=== PATIENT | female | born 1945 | race Asian ===

== ENCOUNTER → 2020-05-04 | Day surgery (SDC) | payer MEDICARE ==
[2020-05-04] VITALS (9 sets, daily range): BP systolic 116–136; BP diastolic 60–82
[~2020-05-04] VITALS: Ht 152.4 cm; Wt 54.4 kg
[~2020-05-04] MED LIST: AMBIEN10 M1 ORAL; AMBIEN5 MG ORAL; ASPIRIN-LOW81 MG ORAL; CALCIUM + VITA1 EAC2 PO; COZAAR50 MG ORAL; CRESTOR10 M1 ORAL; CYCLOBENZAPRINE10 MG ORAL; FOSAMAX70 MG ORAL; HYDROCHLOROTH12.5 MG ORAL; HYZAAR 100-12.1 EACH ORAL; LEVOTHYROXINE100 MCG ORAL; LR 1000ml 1,000 ML IVLG SCH; LR 1000ml ONE; Lidocaine 1% MPF 10mg/ml 5ml ONE; MAGNESIUM250 M3 PO; MULTIVITAMINS1 EAC2 ORAL; TRIPLE FLEX CA1 EACH PO; VITAMIN C500 M1 ORAL; VITAMIN D3250 MCG PO
--- NOTE | 2020-05-04 08:22 | Pre-Procedure Note/Attestation ---
Pre-Procedure Note/Attestation Complete Prior to Procedure Planned Procedure: not applicable Procedure Narrative: esophagogastroduodenoscopy colon Indications for Procedure Pre-Operative Diagnosis: anemia Attestation I attest that I discussed the nature of the procedure; its benefits; risks and complications; and alternatives (and the risks and benefits of such alternatives), prior to the procedure, with the patient (or the patient's legal roofing sales representative). I attest that, if there was a reasonable possibility of needing a blood transfusion, the patient (or the patient's legal roofing sales representative) was given the [facility] standardized written summary, pursuant to the [employer] Blood Safety Act ([place] Health and Safety Code # 1645, as amended). I attest that I re-evaluated the patient just prior to the surgery and that there has been no change in the patient's H&P, except as documented below: Dante Pressley MD May 04, 2020 08:22
--- NOTE | 2020-05-04 08:22 | Short Stay Surgery H&P ---
History of Present Illness History of Present Illness Chief Complaint see report attached HPI Fara Avina is a 74 year old female who was admitted on for Abdominal Pain Patient History Allergies: Coded Allergies: FLURAZEPAM (Verified Allergy, Severe, 08/18/14) HALLUCINATION Medication History Scheduled Alendronate Sodium* (Fosamax*), 70 MG ORAL ONCE A WEEK, (Reported) Ascorbic Acid* (Vitamin C*), 1,000 MG ORAL DAILY, (Reported) Aspirin (Aspirin EC), 81 MG ORAL DAILY, (Reported) Cholecalciferol (Vitamin D3) (Vitamin D3), 5,000 INTLU PO DAILY, (Reported) Hydrochlorothiazide* (Hydrochlorothiazide*), 12.5 MG ORAL DAILY, (Reported) Levothyroxine Sodium* (Levothyroxine Sodium*), 100 MCG ORAL DAILY, (Reported) Losartan Potassium* (Cozaar*), 50 MG ORAL DAILY, (Reported) Magnesium (Magnesium), 250 MG PO DAILY, (Reported) Multivitamins* (Multivitamins*), 1 TAB ORAL DAILY, (Reported) Rosuvastatin Calcium (Crestor), 5 MG ORAL DAILY, (Reported) Zolpidem Tartrate* (Ambien*), 5 MG ORAL BEDTIME, (Reported) Discontinued Medications Calcium Carb & Cit/Vitamin D3 (Calcium + Vitamin D3 Caplet), 1 EACH PO DA, (Reported) Discontinued Reason: Pt stopped taking med Cyclobenzaprine Hcl* (Flexeril*), 10 MG ORAL THREE TIMES A DAY, (Reported) Discontinued Reason: Pt stopped taking med Glucosamine/Msm/Chondroitin A (Triple Flex Caplet), 2 EACH PO DA, (Reported) Discontinued Reason: Pt stopped taking med Losartan/Hydrochlorothiazide 100-12.5 Tablet (Hyzaar 100-12.5 Tablet), 1 TAB ORAL DAILY, (Reported) Discontinued Reason: discontinued med Zolpidem Tartrate* (Ambien*), 10 MG ORAL HS PRN for Insomnia, (Reported) Discontinued Reason: Pt stopped taking med Physical Exam Vital Signs Last Vital Signs Date Time Temp Pulse Resp B/P (MAP) Pulse Ox O2 Delivery O2 Flow Rate FiO2 05/04/20 07:43 Room Air 05/04/20 07:20 98.0 77 20 130/78 100 Plan Attestation Are the patient's medical conditions optimized for surgery? Dante Pressley MD May 04, 2020 08:22
--- NOTE | 2020-05-04 08:52 | Anethesia Preoperative Eval ---
Anesthesia Pre-op PMH/ROS General Date of Evaluation: May 04, 2020 Time of Evaluation: 08:30 Anesthesiologist: kuldip ASA Score: ASA 2 Mallampati Score Class I : Soft palate, uvula, fauces, pillars visible Class II: Soft palate, uvula, fauces visible Class III: Soft palate, base of uvula visible Class IV: Only hard plate visible Mallampati Classification: Class II Surgeon: alejandro Diagnosis: screening Surgical Procedure: egd/colon Family History: no anesthesia problems Allergies: Coded Allergies: FLURAZEPAM (Verified Allergy, Severe, 08/18/14) HALLUCINATION Medications: see eMAR Patient NPO?: Yes NPO Date: May 04, 2020 NPO Time: 00:01 Past Medical History Cardiovascular: Denies: HTN, CAD, NH, valve dz, arrhythmia, other Pulmonary: Denies: asthma, COPD, MARYSE, other Gastrointestinal/Genitourinary: Reports: GERD Neurologic/Psychiatric: Denies: dementia, CVA, depression/anxiety, TIA, other Endocrine: Denies: DM, hypothyroidism, steroids, other HEENT: Denies: cataract (L), cataract (R), glaucoma, [place] (L[place] (R), other Hematology/Immune: Denies: anemia, DVT, bleeding disorder, other Musculoskeletal/Integumentary: Reports: OA; Denies: RA, DJD, DDD, edema, other Anesthesia Pre-op Phys. Exam Physician Exam Last Vital Signs Date Time Temp Pulse Resp B/P (MAP) Pulse Ox O2 Delivery O2 Flow Rate FiO2 05/04/20 07:43 Room Air 05/04/20 07:20 98.0 77 20 130/78 100 Constitutional: NAD Neurologic: CN 2-12 intact Cardiovascular: RRR Respiratory: CTA Gastrointestinal: S/NT/ND Airway Exam Mallampati Classification 2 Mallampati Score: Class II MO: full Neck: normal ROM: full Dentures: no upper, no lower Anesthesia Pre-op A/P Studies Pre-op Studies: EKG - SR Risk Assessment & Plan Assessment: covid neg Plan: mac Status Change Before Surgery: No Pre-Antibiotics Drug: declined Nadira Seo CRNA May 04, 2020 08:52
--- NOTE | 2020-05-04 09:03 | Immediate Post-Op Evaluation ---
Immediate Post-Op Evalulation Immediate Post-Op Evalulation Procedure: EGD/Colonoscopy Date of Evaluation: May 04, 2020 Time of Evaluation: 09:00 IV Fluids: 750 Blood Pressure Systolic: 118 Blood Pressure Diastolic: 74 Pulse Rate: 78 Respiratory Rate: 14 O2 Sat by Pulse Oximetry: 98 Temperature (Fahrenheit): 97.4 Nausea: No Vomiting: No Complications none Patient Status: awake, reacts, patent Hydration Status: adequate Drug: none ErasmoriNadira redding CRNA May 04, 2020 09:03
--- NOTE | 2020-05-04 09:43 | 48 Hour Post Anesthesia Eval ---
Post Anesthesia Evaluation Procedure: EGD/Colonoscopy Date of Evaluation: May 04, 2020 Time of Evaluation: 09:42 Blood Pressure Systolic: 132 0: 78 Pulse Rate: 70 Respiratory Rate: 14 O2 Sat by Pulse Oximetry: 98 Airway: patent Nausea: No Vomiting: No Hydration Status: adequate Cardiopulmonary Status: stable Mental Status/LOC: patient returned to baseline Follow-up Care/Observations: na Post-Anesthesia Complications: none Follow-up care needed: N/A Nadira Seo CRNA May 04, 2020 09:43
--- NOTE | 2020-05-05 01:30 | Operative Note - Dictated ---
DATE OF OPERATION: 05/04/2020 GASTROENTEROLOGY PROCEDURE PROCEDURE: Upper gastrointestinal endoscopy with biopsy as well as colonoscopy. SURGEON: Dante Pressley MD ANESTHESIA: Please see the separate anesthesiologist notes for details. PRE-ENDOSCOPIC DIAGNOSIS: Anemia. POST-ENDOSCOPIC DIAGNOSES: 1. 1 cm gastric ulcer, status post biopsy. 2. Status post random biopsies of normal duodenum. 3. Normal terminal ileum for about 10 cm. 4. Normal colonic mucosa without any evidence of masses or polyps. DESCRIPTION OF PROCEDURE: The procedure, its risks, indications, alternatives, and possible complications including, but not limited to bleeding, infection, perforation, , and anesthesia complications were explained to the patient and informed consent was obtained. The patient was then sedated in the left lateral decubitus position and a diagnostic upper endoscope was introduced through oropharynx and advanced to the duodenum. The endoscope was then gradually withdrawn and mucosa examined carefully. The rectal exam was then done and colonoscope was introduced in the rectum and advanced to 10 cm into the terminal ileum. The colonoscope was then gradually withdrawn and mucosa examined carefully. Examination showed findings as listed above. The patient was sent to recovery in good condition. COMPLICATIONS: None. ASSESSMENT: This patient's examination is notable for a 1 cm gastric ulcer, which may be related to nonsteroidal anti-inflammatory drug use. Patient's biopsies will be evaluated to rule out malignancy and also to rule out Helicobacter pylori. If the latter is positive, she will be given treatment. In the meantime, proton pump inhibitors will be given. RECOMMENDATIONS: 1. Prilosec once daily. 2. Follow up biopsy results. 3. Outpatient followup. Thank you for asking me to participate in the care of this patient. Dante Pressley M.D. DR: KEELY JOB#: [id number] CC: Tania Hanson M.D. ; FAX#: [phone]
--- NOTE | 2020-05-05 13:06 | Cardiology Report ---
APPROVED REPORT EKG Measurement Heart [id number] <Conclusion> Normal sinus rhythm Incomplete right bundle branch block Borderline ECG
== END | disposition home or self-care (01) ==
LOC: GAS 06:45
DX: D64.9 Anemia, unspecified (principal); K25.9 Gastric ulcer, unspecified as acute or chronic, without hemorrhage or perforation; Z79.82 Long term (current) use of aspirin; Z88.8 Allergy status to other drugs, medicaments and biological substances; Z79.899 Other long term (current) drug therapy; I45.10 Unspecified right bundle-branch block; K21.9 Gastro-esophageal reflux disease without esophagitis; M19.90 Unspecified osteoarthritis, unspecified site
CPT/HCPCS: 43239; 45378; 93005; 94003; J2704; J7120; U0002; 94150